=== PATIENT | male | born 1985 | race Caucasian/White ===

== ENCOUNTER → 2023-06-13 | Outpatient (CLI) | payer OTHER ==
--- NOTE | 2023-06-13 14:36 | US ---
EXAMINATION TYPE: US scrotum with doppler. Grayscale and color Doppler Duplex imaging performed of t lexa scrotum. DATE OF EXAM: 06/13/2023 COMPARISON: NONE CLINICAL INDICATION: Male, 37 years old with history of N50.89 SPECIFIED DISORDERS OF THE MALE GENITA L ORG; Left testicular pain 1 month ago EXAM MEASUREMENTS: TESTICLES: Right Testicle: 4.9 x 2.3 x 2.9 cm Left Testicle: 4.5 x 2.2 x 3.0 cm EPIDIDYMIS HEAD: Right Epididymis: 1.6 cm Left Epididymis: 1.7 cm Doppler performed to assess for testicular vascularity; good bilateral color flow and waveforms are s een. There is no evidence of testicular torsion. Presence of hydroceles: no Presence of varicoceles: no IMPRESSION: No discrete abnormality appreciated.
== END | disposition home or self-care (01) ==
LOC: RADUSWWP 13:21
PROVIDERS: ATTEND Urology
DX: N50.89 Other specified disorders of the male genital organs (principal)
CPT/HCPCS: 76870; 93975

== ENCOUNTER → 2024-01-29 | Outpatient (CLI) | payer OTHER ==
--- NOTE | 2024-01-29 19:20 | CT ---
EXAMINATION TYPE: CT abdomen pelvis wo/w con DATE OF EXAM: 01/29/2024 COMPARISON: HISTORY: bladder and bowel irriation x 10+years. Family history of bladder Ca. CT DLP: 1082.9 mGycm Automated exposure control for dose reduction was used. TECHNIQUE: Helical acquisition of images was performed from the lung bases through the pelvis. CONTRAST: Performed with Oral Contrast and without and with IV Contrast, patient injected with 100ml mL of Isov ue 300. FINDINGS: The lung bases are clear. The gallbladder is normal without distention, wall thickening, pericholecystic fluid or gallstones. T he gallbladder is contracted. There is no biliary ductal dilatation. There is no focal mass or organomegaly involving the liver, pancreas, spleen or adrenal glands. There are a few small hepatic cysts. There is no solid renal mass or hydronephrosis and there is homogeneous contrast enhancement of the r enal parenchyma. There are 2 nonobstructing 1 to 2 mm right renal calcifications. The caliber the abdominal aorta is normal is no retroperitoneal adenopathy or hemorrhage. The bowel loops are normal in caliber and there is no evidence of dilatation or obstruction. No infla mmatory changes are identified in the bowel wall or mesentery. There is no free intraperitoneal air or fluid. No pelvic mass, free fluid, abscess or adenopathy. The osseous structures and soft tissues are intact. IMPRESSION: 2 Sedrick-like nonobstructing right renal calcifications. No other significant abnormality seen.
== END | disposition home or self-care (01) ==
LOC: RADCTMAIN 16:59
PROVIDERS: ATTEND Family Medicine
DX: R10.2 Pelvic and perineal pain (principal); N28.89 Other specified disorders of kidney and ureter
CPT/HCPCS: 74178; Q9967

== ENCOUNTER → 2024-06-15 | Outpatient (CLI) | payer OTHER ==
--- NOTE | 2024-07-03 09:05 | MR ---
Site ID synapse default Patient Khanh Romano S ID [id number] Age/Gender: 38Y, M Order # N/A Procedure MR lumbar wo con Date 06/15/2024 2:05:37 PM EXAMINATION TYPE: MR lumbar spine wo con DATE OF EXAM: 06/15/2024 COMPARISON: Lumbar spine radiographs 04/18/2024, CT abdomen and pelvis 01/29/2024 HISTORY: Low back pain that radiates into left and right buttocks TECHNIQUE: Multiplanar, multisequence images of the lumbar spine were acquired without IV contrast. FINDINGS: The lumbar vertebral bodies do have preserved heights and alignment. Mild disc desiccatio n identified at L1-L2 and L5-S1. The conus medullaris and the distal spinal cord do appear unremarka ble with regards to their signal intensity and morphology. T1/T2 hyperintense benign vertebral freddie ioma within the S1 vertebral body. T12-L1: No significant disc pathology is identified. The spinal canal and neural foramen are patent L1-L2: Broad-based disc bulge with annular fissure. Mild effacement of the anterior thecal sac. No neuroforaminal stenosis. L2-L3: No significant disc pathology is identified. The spinal canal and neural foramen are patent. L3-L4: No significant disc pathology is identified. The spinal canal and neural foramen are patent. L4-L5: Broad-based disc bulge is identified with associated enlargement of the facet joints. The spi nal canal remains patent. Neural canals are mildly narrowed bilaterally. L5-S1: The intervertebral disc appears round on its contour posteriorly without significant mass eff ect upon the thecal sac. Neural canals are patent. Other significant findings: None. IMPRESSION: 1. No definitive evidence for disc herniation or significant spinal canal stenosis. 2. Mild disc degeneration at L1-L2 and L4-L5 with mild central canal stenosis at L1-L2. Mild bilater al facet arthropathy at L4-L5 resulting in mild neuroforaminal stenosis.
== END | disposition home or self-care (01) ==
LOC: RADMRIMAIN 14:19
PROVIDERS: ATTEND Orthopaedic Surgery
DX: M47.816 Spondylosis without myelopathy or radiculopathy, lumbar region (principal); M51.36 Other intervertebral disc degeneration, lumbar region; M99.73 Connective tissue and disc stenosis of intervertebral foramina of lumbar region
CPT/HCPCS: 72148

== ENCOUNTER → 2025-03-10 | Outpatient (CLI) | payer OTHER ==
--- NOTE | 2025-03-10 16:06 | CT ---
EXAMINATION TYPE: CT facial bones wo con CT DLP: 966.70 mGycm, Automated exposure control for dose reduction was used. DATE OF EXAM: 03/10/2025 3:06 PM COMPARISON: None. CLINICAL INDICATION:Male, 39 years old with history of J34.1 CYST AND MUCOCELE OF NOSE AND NASAL SINU S; PHH, SMALL BUMP ON LEFT SIDE OF NOSE FOR 1 YEAR, PAINFUL WHEN PRESSURE IS APPLIED, pain TECHNIQUE: Multiple unenhanced axial CT images were obtained of the facial bones soft tissue and bone windows. Coronal, axial and sagittal reformatted images were also provided in soft tissue and bone windows and submitted for interpretation. FINDINGS: There is no evidence of fracture, subluxation, or dislocation. There is a 5 mm fluid attenuating focu s within the left nasal soft tissues (series 9, image 9). Evaluation is limited due to lack of intrav enous contrast. No distinct aggressive features identified. The orbital contents are unremarkable. Th e temporal-mandibular joints appear symmetric. Minimal mucosal thickening of the inferior bilateral m axillary sinuses. Hypoplastic appearance of the frontal sinus. The remaining paranasal sinuses are cl ear. Mild nasal septal deviation to the right with spurring. The visualized mastoid air cells are viet ar. IMPRESSION: 1. No acute facial bone fracture. 2. There is a 5 mm fluid attenuating focus within the left nasal soft tissues likely corresponding t o patient's palpable abnormality. Probable cyst. Consider dermatology consult as clinically indicated . [facility], , 03/10/2025 4:04 PM
== END | disposition home or self-care (01) ==
LOC: RADCTMAIN 14:41
PROVIDERS: ATTEND Psychiatry & Neurology Neurology
DX: J34.1 Cyst and mucocele of nose and nasal sinus (principal)
CPT/HCPCS: 70486